=== PATIENT | female | born 1995 | race Caucasian/White ===

== ENCOUNTER 2018-08-20 19:05 | Emergency (ER) | payer MEDICAID ==
--- NOTE | 2018-08-20 19:23 | EDPHY ---
H & P Stated Complaint: shooting pains x2 months, L hip pain Time Seen by Provider: 08/20/18 19:21 HPI/ROS: HPI: This is a 22-year-old female who presents with Chief Complaint: shooting pains x2 months, L hip pain Location: Left hip and groin Quality: Pain Duration: 2 months Signs and Symptoms: No bleeding, + radiation, no numbness, no weakness, no tingling, no incontinence, no decreased range of motion, no swelling, + pain, no fever Timing: Daily Severity: Moderate Context: Patient reports that she has Medicaid, lives in [place], presents with 2 month history of left hip and in her groin pain that started after completing of 14 mi hike approximately 2 months ago. She was originally seen by her pulp grinder. She was sent to physical therapy with no relief of the symptoms. She then was referred Orthopedics and because no imaging was performed prior they will not see her. She is having difficulty finding orthopedist to see her as she has Medicaid. She denies any change in bowel or bladder habits, radiation, weakness. She does report pain increases with ambulation and use. Modifying Factors: Ibuprofen and Tylenol with no relief Comment: ROS: A comprehensive 10 system review of systems is otherwise negative aside from elements mentioned in the history of present illness. MEDICAL/SURGICAL/SOCIAL HISTORY: Medical history: Generally healthy. IUD in place. Surgical history: Denies Social history: Nonsmoker. CONSTITUTIONAL: Tearful polite and cooperative young adult white female, awake and alert, no obvious distress HEENT: Atraumatic and normocephalic. NECK: supple Extremities: Left HIP: Flexion to 125, extension to 115, hyper extension to 15, abduction to 45. Moderate Pain with internal rotation and external rotation. No tenderness over greater trochanter. good light touch sensation. no deformities, no clubbing, no cyanosis or edema. NEUROLOGICAL: no focal neuro deficits. GCS 15. Light touch sensation intact. SKIN: Warm and dry, no erythema. no rash. Good capillary refill. Source: Patient Exam Limitations: No limitations - Personal History LMP (Females 10-55): IUD [address] Current Tetanus Diphtheria and Acellular Pertussis (TDAP): Yes - Medical/Surgical History Hx Asthma: No Hx Chronic Respiratory Disease: No Hx Diabetes: No Hx Cardiac Disease: No Hx Renal Disease: No Hx Cirrhosis: No Hx Alcoholism: No Hx HIV/AIDS: No Hx Splenectomy or Spleen Trauma: No Other PMH: denies - Social History Smoking Status: Never smoked Constitutional: Initial Vital Signs Temperature (C) 36.6 C 08/20/18 19:09 Heart Rate 70 08/20/18 19:09 Respiratory Rate 18 08/20/18 19:09 Blood Pressure 144/73 H 08/20/18 19:09 O2 Sat (%) 95 08/20/18 19:09 O2 Delivery Mode Room Air Allergies/Adverse Reactions: No Known Allergies Allergy (Verified 08/20/18 19:07) Home Medications: Medication Instructions Recorded Spritam 06/26/16 FLUoxetine 07/29/16 Cephalexin [Keflex] 500 mg PO QID 7 Days cap 09/22/16 Phenazopyridine HCl [Pyridium] 200 mg PO PC #10 tab 09/22/16 Medical Decision Making ED Course/Re-evaluation: Vital signs reviewed and stable upon arrival. Patient reluctantly declines MRI in the emergency room due to cost. Referral to Orthopedics for evaluation and determine if MRI is needed. No signs of neurovascular compromise/tenting of skin/compartment syndrome/ extremities and joints examined above and below area of concern and are neurovascularly intact. This patient was seen under the supervision of my secondary supervising physician. I evaluated care for this patient independently. Discussed this patient with Dr. Burgess. Differential Diagnosis: Differential diagnosis includes but is not limited to labral tear, hip sprain, lumbar radiculopathy, sacroiliac joint dysfunction. Departure - Departure Disposition: Home, Routine, Self-Care Clinical Impression: Labral tear of left hip joint Qualifiers: Encounter type: initial encounter Qualified Code(s): S73.192A - Other sprain of left hip, initial encounter Condition: Good Instructions: Hip Sprain (ED), Hip Pain (ED) Additional Instructions: Limit activity of the left lower extremity as much as possible until seen by Orthopedics Take Tylenol 650 mg every 4 hours and/or Ibuprofen 600 mg every 8 hours with food as needed for pain. Follow up with Orthopedics in 5-7 days at which time they will evaluate and recommend with you if conservative management versus further imaging like MRI is indicated. Follow-Up: Please follow-up as noted above. Follow up sooner if your condition worsens or if you develop any new problems Call as soon as possible for an appointment. Be clear when you call for an appointment that this is an Emergency Department follow-up. Contact the Emergency Department if you are having trouble arranging follow up care. Our referrals are not based on your insurance network. When time allows, contact your insurance carrier to verify the referral physician is in your plan. If not, get a referral for an in-networking administrator. Please ask us if you have any questions. Referrals: Danilo Brown MD [Medical Doctor] - As per Instructions
[2018-08-21 01:32] VITALS: BP 134/71
== END 2018-08-20 19:47 | disposition home or self-care (01) ==
DX: M25.552 Pain in left hip (principal)